=== PATIENT | male | born 1970 | race African-American/Black ===

== ENCOUNTER 2023-06-26 11:57 | Emergency (ER) | payer OTHER, SELFPAY ==
[2023-06-26 12:50] VITALS: BP 174/96; PULSE 60; RESP 18; TEMP 37.1; O2SAT 100
--- NOTE | 2023-06-26 13:09 | ED.WOUNDLAC ---
HPI - Wound/Laceration General Chief Complaint: Wound/Laceration Stated Complaint: open wound rt foot Time Seen by Provider: 06/26/23 13:01 Source: patient and RN notes reviewed Mode of arrival: ambulatory Limitations: no limitations History of Present Illness HPI narrative: Patient presents today complaining of a painful sore on the bottom of his right foot times 3-4 months. States he sweats a lot due to wearing boots for 12 hours a day while at work. States area on his foot is very hard and painful when he walks. He has tried no [id number] treatment prior to arrival. Review of Systems Review of Systems: CONSTITUTIONAL: Denies body aches, fever, chills, or sweats. EYES: Denies visual changes, redness, or discharge. ENT: Denies rhinorrhea, congestion, sore throat, or otalgia. CARDIOVASCULAR: Denies chest pain, palpitations, or edema. RESPIRATORY: Denies cough or dyspnea. GASTROINTESTINAL: Denies abdominal pain, nausea, vomiting, or diarrhea. GENITOURINARY: Denies dysuria or hematuria. SKIN: + foot sore MUSCULOSKELETAL: Denies back pain, joint pain, or myalgia. NEUROLOGIC: Denies headache, numbness, tingling, or weakness. PSYCH: Denies depression or anxiety. PMFSH Comments At time of signature, I have reviewed and agree with nursing past medical, surgical, social and family history unless otherwise noted. Please see nursing chart for further information. There is no relevant family history pertinent to the presenting complaint Exam Narrative: GENERAL: Well-appearing, well-nourished, and in no acute distress. HEAD: Normocephalic, atraumatic. EYES: EOMI. No redness or drainage. Conjunctivae normal. ENT: Mucous membranes pink and moist. NECK: Normal AROM. CHEST: No respiratory distress. EXTREMITIES: Normal range of motion. No edema. SKIN: Warm, dry, no rash. Capillary refill normal. Normal skin turgor.1.5cm round, hard, keratotic lesion with dimpled center to the ball of the foot. No surrounding erythema. No fluctuance. Tender to palpation. Well delineated edges. NEURO: No focal deficits. Alert and oriented x3. Gait steady. PSYCH: Normal affect. No signs of depression or anxiety. Course Course Level of Care: Express Care Visit Vital Signs Vital signs: Vital Signs Temperature 98.8 F 06/26/23 12:50 Pulse Rate 60 06/26/23 12:50 Respiratory Rate 18 06/26/23 12:50 Blood Pressure 174/96 H 06/26/23 12:50 Pulse Oximetry 100 06/26/23 12:50 Oxygen Delivery Room Air 06/26/23 12:50 Temperature 98.8 F 06/26/23 12:50 Pulse Rate 60 06/26/23 12:50 Respiratory Rate 18 06/26/23 12:50 Blood Pressure 174/96 H 06/26/23 12:50 Pulse Oximetry 100 06/26/23 12:50 Oxygen Delivery Room Air 06/26/23 12:50 Reviewed. Pt has been instructed to follow up with his PCP regarding his elevated blood pressure today. MDM - Wound/Laceration MDM Narrative Medical decision making narrative: Exam consistent with porokeratoma. Will refer to podiatry for further treatment. Patient agreeable to plan. Anticipatory guidance given. Differential Diagnosis Differential diagnosis: Likely abscess and other (Keratosis, corn) Critical Care Time Critical Care Time Critical Care Time: No Discharge Plan Discharge Clinical Impression: Acquired plantar porokeratosis Patient Disposition: Home, Self-Care Condition: Stable Additional Instructions: Please follow-up with podiatry for further evaluation of the sore on the bottom of your foot. Take Tylenol or ibuprofen for pain, if able. Your blood pressure was elevated above 120/80 today at Urgent Care. This puts you above the threshold for follow up. Please schedule a followup visit with your personal physician as soon as possible, for further evaluation and treatment. Even blood pressure exceeding 120/80 may indicate pre-hypertension. Follow-up/Referrals: Marge,Anisha Bowen, [employer]-[facility] [Primary Care Provider] - Time of Disposition
== END 2023-06-26 13:16 | disposition home or self-care (01) ==
PROVIDERS: Emergency Provider Nurse Practitioner; PCP Nurse Practitioner Family
DX: L85.1 Acquired keratosis [keratoderma] palmaris et plantaris (principal); I10 Essential (primary) hypertension
CPT/HCPCS: 99202; G0463

== ENCOUNTER 2024-08-11 11:16 | Emergency (ER) | payer OTHER, SELFPAY ==
--- NOTE | 2024-08-11 11:20 | ED.SKABFB ---
HPI - Skin/Abscess/Foreign Bdy General Chief complaint: Skin/Abscess/Foreign Body Stated complaint: painful bump on buttocks Time Seen by Provider: 08/11/24 11:34 Source: patient, RN notes reviewed and old records reviewed Mode of arrival: ambulatory Limitations: no limitations History of Present Illness HPI narrative: 53-year-old male presents to the [facility] with a painful lump to the rectal area that he noticed about 3 days ago. Extremely painful, red, raised. Has noticed discharge. Denies fevers. Denies abdominal pain. No change in bowel movements. Denies any history of hemorrhoids. Reports being a ?borderline diabetic? as well as history of hypertension Onset (ago): day(s) (3) Treatments prior to arrival: none Related Data Home Medications Medication Instructions Recorded Confirmed lisinopril 20 mg tablet 20 mg PO DAILY 08/11/24 08/11/24 Allergies Allergy/AdvReac Type Severity Reaction Status Date / Time amoxicillin Allergy Severe Anaphylaxis Verified 08/11/24 11:43 Review of Systems Review of Systems: All systems reviewed & are unremarkable except as noted in HPI and below Constitutional: Constitutional: Reports no additional constitutional complaints Eyes: Eyes: Reports no additional eye complaints ENT: Reports system reviewed and no additional complaints, except as documented Cardiovascular: Cardiovascular: Reports no additional cardiovascular complaints, Denies chest pain and Denies dyspnea Respiratory: Respiratory: Reports no additional respiratory complaints, Denies chest congestion, Denies cough and Denies dyspnea Gastrointestinal: Gastrointestinal: Reports as per HPI, Denies abdominal pain, Denies change in stool character, Denies constipation, Denies fecal incontinence, Denies nausea, Denies vomiting and Reports other (pain with Bowel movement ) Musculoskeletal: Musculoskeletal: Reports no additional musculoskeletal complaints PMFSH Past Medical History Medical History Borderline diabetes History of high blood pressure Comments At the time of my signature, I reviewed and agree with the nursing past medical, surgical, social, and family history. There is no relevant family history pertinent to the patient complaint. Exam Const: General: cooperative, healthy appearing, comfortable, no acute distress, well developed, alert and well nourished Nutritional Appearance: well nourished Orientation/consciousness: patient oriented x3 Limitations: no limitations HENMT: Head: normal to inspection Ears: hearing grossly normal bilaterally and external ears normal Face/Nose/Sinus: Normal external nose present, normal facial exam and face symmetric Face and sinus: normal facial exam and face symmetric Eyes: General: appearance normal, both eyes and all related structures Alignment and Position: alignment normal Periorbital: periorbital findings normal Neck: Neck: normal visual inspection, full ROM, no lymphadenopathy and no meningeal signs Chest: Chest palpation & inspection: normal inspection of the chest Resp: Effort & Inspection: normal respiratory effort and able to speak in complete sentences Cardio: Rate: regular rate GI: GI Palp: No abdominal tenderness Rectal Exam: abscess (Between 4 and 6 oclock off rectum. 2 x 1.5 cm fluctuant area) and No Rectal prolapse Skin: General skin exam: normal color and no rashes or lesions noted Rashes: no rashes Trauma: no lacerations or abrasions Neuro: General: patient oriented x3, gait normal, tone normal, moves all extremities and no meningeal signs Cognition (Neuro): normal cognition Speech: normal speech Gait exam (Neuro): Normal gait present Extrem: General: normal to inspection, full ROM, capillary refill normal and normal gait Psych: Appearance: grossly normal and well kempt Mental Status: mental status grossly normal Speech and movement: Normal speech and movement present and Clear spee
[2024-08-11 11:28] VITALS: BP 143/84; PULSE 69; RESP 16; TEMP 36.8; O2SAT 99
== END 2024-08-11 11:50 | disposition short-term general hospital (02) ==
PROVIDERS: Emergency Provider Nurse Practitioner; PCP Family Medicine
DX: K61.1 Rectal abscess (principal)
CPT/HCPCS: 99212; G0463

== ENCOUNTER 2025-07-07 17:12 | Emergency (ER) | payer OTHER, SELFPAY ==
--- NOTE | 2025-07-07 17:14 | ED_ITS ---
HPI - Extremity Injury (Upper) General Chief Complaint: Extremity Injury, Upper Stated Complaint: L Wrist Pain Time Seen by Provider: 07/07/25 17:13 Source: patient Mode of arrival: ambulatory Limitations: no limitations History of Present Illness HPI narrative: Giulia is a 54-year-old male patient presenting to the clinic today with complaints of left wrist pain and swelling x1 day. 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 States he yesterday started having pain and swelling to the left medial volar wrist. Is having pain with extension of his fingers as well as inability to make a fist. Denies any injury to his wrist. Has point tenderness over the volar wrist flexor tendon. Related Data Home Medications ?Medication ?Instructions ?Recorded ?Confirmed ?Last Taken ?Type lisinopril 20 mg tablet 20 mg PO DAILY 08/11/2407/25 Unknown History metformin 500 mg tablet,extended mg PO 07/07/25 Unkno wn History release 24 hr Allergies Allergy/AdvReac Type Severity Reaction Status Date / Time amoxicillin Allergy Severe Anaphylaxis Verified 07/07/25 17:26 Review of Systems Review of Systems: Pertinent positives per HPI. Patient denies any fever, chills, rash, headache, visual changes, dizziness, cough, runny nose, sore throat, shortness of breath, chest pain, palpitations, nausea, vomiting, diarrhea, constipation, abdominal pain, or any urinary issues. [facility], [facility] Past Medical History Medical History Borderline diabetes History of high blood pressure Comments At the time of my signature, I reviewed and agree with the nursing past medical, surgical, social, and family history. There is no relevant family history pertinent to the patient complaint. Exam Narrative: General: Well-developed, well nourished, in no apparent distress Head: Normocephalic, atraumatic. Cardio: Regular rate and rhythm, s1 and s2 normal, no murmur appreciated. Resp: Clear to auscultation bilaterally, no rhonchi, rales, wheezing or rubs. Musculoskeletal: No deformity, mild volar wrist swelling with tender to palpation over the flexor tendon, pain with Tinel's, unable to fully extend or f billy fingers and or make a fist, muscle strength strong and equal, peripheral pulse strong, no edema, no cyanosis, normal gait and station Course Course Emergency Course: Portions of this record may have been created with voice recognition software. Level of Care: Express Care Visit Vital Signs Vital signs: Vital signs reviewed MDM - Extremity Injury (Upper) MDM Narrative Medical decision making narrative: At the time of visit patient is resting comfortably on the exam table. Patient appears to be nontoxic. Complaints of left wrist pain and swelling x1 day. 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 States he yesterday started having pain and swelling to the left medial volar wrist. Is having pain with extension of his fingers as well as inability to make a fist. Denies any injury to his wrist. Has point tenderness over the volar wrist flexor tendon. On exam has mild volar wrist swelling with tender to palpation over the flexor tendon, pain with Tinel's, unable to fully extend or flex fingers and or make a fist, Plan: I suspect patient has wrist tendinitis. Prescription for Medrol Dosepak was sent to the pharmacy. Patient also to take Tylenol ibuprofen as needed for pain. Ice pack was given-encouraged to apply for 20 minutes at a time 20 minutes off/20 minutes on for the next 24 hours. Recommend wearing a cock-up wrist splint. Work note was given for no use of the left hand x1 week. Recommend follow-up with PCP this week or if unable to get to PCP may try getting in to orthopedic provider. Dr. Uriarte contact information given to the patient. Supportive measures were discussed with the patient and they voiced understanding discharge instructions and agrees to treatment plan. Return precautions reviewed Differential Diagnosis Differential diagnosis: Likely sprain and strain of wrist, fracture of wrist and other (Arthritis, gout) Discharge Plan Discharge Clinical Impression: Left wrist tendinitis Patient Disposition: Home Condition: Stable Instructions: Antibiotic Form, Tendinitis (ED) Additional Instructions: Rest, ice, elevate, and wear cock-up wrist splint as discussed Tylenol/motrin for pain as discussed. Take Medrol Dosepak as prescribed No use of the left hand x1 week Follow up with your PCP if symptoms persist more than 1 week. Patient Language: Kazakh Prescriptions: New methylprednisolone [Medrol (Juan Diego)] 4 mg tablets,dose pack See Rx Instructions PO .COMPLEX Qty: 21 0RF Rx Instructions: orally per package directions No Action lisinopril 20 mg tablet 20 mg PO DAILY metformin 500 mg tablet extended release 24 hr PO Follow-up/Referrals: Lloyd,MD Hans [Primary Care Provider, Unknown] Jose Uriarte MD [Physician, Orthopedics] - 1 Week Referral Note: Left wrist tendinitis-no injury- pain with flexion and extension of the fingers-unable to make a fist Clinical Impression: Left wrist tendinitis Stand Alone Forms: Work/School Release IP Time of Disposition: 17:46 Quality NIHSS Nursing Documentation ED NIHSS nursing documentation: reviewed/agree
--- OUTSIDE RECORDS SUMMARY | 2025-07-07 17:18 | XMS_ITS | Encounter Summary ---
Author Organization [employer] Address [address] [place] [address] Care Team Providers Care Vault Teller Name Role Phone Unavailable Primary Care Provider Unavailabl e Encounter Details Date Type Department Care Team (Late st Contact Info) Description 10/15/2023 Telephone [facility] [address] [address] [place] [id number] [facility] [address] [place] [address] Social History Tobacco Use Types Packs/Day Years Used Date Smoking Tobacco: Every Day Cigarettes 1.5 3 Sex and Gender Information Value Date Recorded Sex Assigned at Not on file Legal Sex Male 10:06 AM CDT Gender Identity Not on file Sexual Orientation Not on file documented as of this encounter Plan of Treatment Not on file documented as of this encounter Visit Diagnoses Not on filedocumented in this encounter
--- OUTSIDE RECORDS SUMMARY | 2025-07-07 17:18 | XMS_ITS | Encounter Summary ---
Author Organization [facility] Address [address] [place] [address] Care Team Providers Care Fourth Mate Name Role Phone Unavailable Primary Care Provider Unavailabl e Reason for Visit * Reason Onset Date Comments PT SCRIPT 09/03/2023 WOULD LIKE A SCR IPT FOR ADDITIONAL PT/ PATIENT NEXT VISIT IS 09-06-23 Encounter Details Date Type Department Care Team (Late st Contact Info) Description 09/03/2023 Telephone [facility] Orthopedic Surgery at the [facility] [address] [facility] [address] [place] [address] [place] [address] [place] [address] PT SCRIPT (WOULD LIKE A SCRIPT FOR ADDITIONAL PT/ PATIENT NEXT VISIT IS 09-06-23) Social History Tobacco Use Types Packs/Day Years Used Date Smoking Tobacco: Every Day Cigarettes 1.5 3 Sex and Gender Information Value Date Recorded Sex Assigned at Not on file Legal Sex Male 10:06 AM CDT Gender Identity Not on file Sexual Orientation Not on file documented as of this encounter Miscellaneous Notes * Telephone Encounter - Jessy Martin - 09/03/2023 1:30 PM CST WOULD LIKE A SCRIPT FOR ADDITIONAL PT/ PATIENT NEXT VISIT IS 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
--- OUTSIDE RECORDS SUMMARY | 2025-07-07 17:18 | XMS_ITS | Clinical Summary ---
Author Organization [facility] Address [facility] [place] [address] Care Team Providers Care Production Machinist Name Role Phone None, Provider MD Primary Care Provider Unavaila ble Allergies Active Allergy Reactions Criticality Noted Date Comments Amoxicillin Anaphylaxis High 08/28/2022 Social History Tobacco Use Types Packs/Day Years Used Date Smoking Tobacco: Never Smokeless Tobacco: Never Tobacco Cessation:Counseling Given: Not Answered Alcohol Use Standard Drinks/Week Comments Yes 0 (1 standard drink = 0.6 oz pur e alcohol) socially Sex and Gender Information Value Date Recorded Sex Assigned at Not on file Legal Sex 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 Gender Identity Not on file Sexual Orientation Not on file Last Filed Vital Signs Vital Sign Reading Time Taken Comments Blood Pressure 158/72 08/11/2024 2:55 PM CDT Pulse 64 08/11/2024 2:55 PM CDT Temperature 36.6 C (97.9 F) 08/11/2024 12:27 PM CDT Respiratory Rate 20 08/11/2024 2:55 PM CDT Oxygen Saturation 98% 08/11/2024 2:55 PM CDT Inhaled Oxygen Concentration - - Weight 97.5 kg (215 lb) 08/11/2024 12:27 PM CDT Height 177.8 cm (5' 10) 08/11/2024 12:27 PM CDT Body Mass Index 30.85 08/11/2024 12:27 PM CDT Plan of Treatment Health Maintenance Due Date Last Done Comments Colorectal Cancer Screening Colonoscopy (10 Years) 1972 Annual Physical 1975 Hepatitis C 1990 Hepatitis B Vaccines (1 of 3 - 19+ 3-dose series) 1991 Pneumococcal Vaccine: 50+ Years (1 of 1 - PCV) 2022 Zoster Vaccines (1 of 2) 2022 COVID-19 Vaccine (1 - 2023-2 5 season) 2025 DTaP, Tdap and Td Vaccines ( 3 - Td or Tdap) 02/14/2032 02/13/2022, 11/01/2015 Meningococcal B Vaccine Aged Out No l onger eligible based on patient's age to complete this topic Meningococcal Vaccine Aged Out No carol nathan eligible based on patient's age to complete this topic RSV Immunizations Under 20 Months Aged Out No longer eligible b ased on patient's age to complete this topic Additional Health Concerns Infection Onset Date Last Indicated ESBL - Extended Spectrum Bet a-lactamase Comment:08/11/24 +ESBL Perirectal 08/11/2024 08/11/2024 Insurance [facility] Care Teams Production Machinist Relationship Specialty Start Date End Date None, Provider, PCP - General UNKNOWN PHYSICIAN SPECIALTY 08/11/24
--- OUTSIDE RECORDS SUMMARY | 2025-07-07 17:18 | XMS_ITS | Clinical Summary ---
Author Organization [facility] Address [address] [place] [address] Care Team Providers Care Reducing Salon Attendant Name Role Phone Unavailable Primary Care Provider Unavailabl e Source Comments [facility],non-owned Affiliates and Associated Physician Practices is amultiple site organization consisting of ambulatory clinics and hospital sitesin [place], [place], [place] and [place]. This disclosure is being madepursuant to the Care Everywhere program and may not contain all information available regarding this patient. Last updated 18.[facility] [employer] Allergies Active Allergy Reactions Criticality Noted Date Comments Amoxicillin Unknown 03/14/2012 Medications * Be aware that medications may not be up to date on this document. Alwaysverify current medications with the patient. ofloxacin (OCUFLOX) 0.3 % ophthalmic solutionIndicat ions:Ear canal abrasion, right, initial encounter 3 drops in right ear, three times a day, for 3 days 5 mL 10/20/2017 Active lisinopril-hydr oCHLOROthiazide (PRINZIDE; ZESTORETIC) 20-25 MG tablet Take 1 tablet by mouth once daily Please contact office to schedule appt 30 tablet 01/11/2018 Active Active Problems Problem Noted Date Diagnosed Date Essential hypertension, benign 01/01/2013 Overview (01/01/2013): 03/14/12 Immunizations Immunization Administration Dates Next Due TDAP (7yrs+) 11/01/2015 Social History Tobacco Use Types Packs/Day Years Used Date Smoking Tobacco: Never Smokeless Tobacco: Never Alcohol Use Standard Drinks/Week Comments No 0 (1 standard drink = 0.6 oz pur e alcohol) Sex and Gender Information Value Date Recorded Sex Assigned at Not on file Legal Sex Male 8:43 PM SENIOR COMMISSIONS ANALYST Gender Identity Not on file Sexual Orientation Not on file Last Filed Vital Signs Vital Sign Reading Time Taken Comments Blood Pressure 132/80 10/14/2017 2:04 PM SENIOR COMMISSIONS ANALYST Pulse 84 10/14/2017 2:04 PM SENIOR COMMISSIONS ANALYST Temperature 36.6 C (97.8 F) 10/14/2017 2:04 PM SENIOR COMMISSIONS ANALYST Respiratory Rate 14 11/21/2013 3:17 PM SENIOR COMMISSIONS ANALYST Oxygen Saturation 97% 10/14/2017 2:04 PM SENIOR COMMISSIONS ANALYST Inhaled Oxygen Concentration - - Weight 94.3 kg (208 lb) 10/14/2017 2:04 PM SENIOR COMMISSIONS ANALYST Height 182.9 cm (6') 10/14/2017 2:04 PM SENIOR COMMISSIONS ANALYST Body Mass Index 28.21 10/14/2017 2:04 PM SENIOR COMMISSIONS ANALYST Plan of Treatment Health Maintenance Due Date Last Done Comments COLOGUARD (AGES 45-75) - COL ON CA SCREENING 1972 COLON MONITORING 1972 COLONOSCOPY - COLON CA SCREENING 1972 CT COLONOGRAPHY - COLON CA SCREENING 1972 Colorectal Cancer Screening 1972 FIT - COLON CA SCREENING 1972 FLEX SIG - COLON CA SCREENING 1972 HIV SCREENING 1987 HEPATITIS C SCREENING 11/29/1990 HEPATITIS B VACCINE (1 of 3 - 19+ 3-dose series) 1991 SCREENING FOR DIABETES 11/01/2018 11/01/2015 LIPID TESTING 11/01/2020 11/01/2015, 11/01/2015 PNEUMOCOCCAL VACCINE 50+ (1 of 1 - PCV) 2022 ZOSTER VACCINE (1 of 2) 2022 DEPRESSION SCREENING 10/25/2024 COVID-19 VACCINE (1 - 2023-2 5 season) 2025 INFLUENZA VACCINE (#1) 2025 DTAP/TDAP/TD VACCINES (2 - T d or Tdap) 11/01/2025 11/01/2015 HIB VACCINE Aged Out No longer eligi ble based on patient's age to complete this topic HPV VACCINE Aged Out No longer eligi ble based on patient's age to complete this topic MENINGOCOCCAL (Group B) VACCINE SHARED DECISION-MAKING Aged Out No longer eligible based on patient's age to complete this topic MENINGOCOCCAL GROUPS A/C/Y/W VACCINE Aged Out No longer eligible b ased on patient's age to complete this topic Procedures Procedure Name Priority Date/Time Associated Diagnosis Comments COMPREHENSIVE METABOLIC PANEL Routine 11/01/2015 3:41 PM SENIOR COMMISSIONS ANALYST Essential hypertension, benign Encounter for general adult medical examination with abnormal findings LIPID PROFILE Routine 11/01/2015 3:41 PM SENIOR COMMISSIONS ANALYST Essential hypertension, benign Encounter for general adult medical examination with abnormal findings from Last 3 Months or Most Recently Relevant to Health Maintenance Results * (ABNORMAL) COMPREHENSIVE METABOLIC PANEL (11/01/2015 3:41 PM SENIOR COMMISSIONS ANALYST) Glucose 114(H) 65 - 99 mg/dL [facility] ACCOUNT BILL Comment: Specimen received in contact with cells. No visible hemolysis present. However GLUC may be decreased and K increased. Clinical correlation indicated. BUN 29(H) 6 - 24 mg/dL [facility] ACCOUNT BILL Creatinine 1.47(H) 0.76 - 1.27 mg/dL [facility] ACCOUNT BILL eGFR by MDRD 58(L) >59 mL/min/1.7 3 [facility] ACCOUNT BILL eGFR by MDRD 67 >59 mL/min/1.7 3 [facility] ACCOUNT BILL BUN/Creatinine Ratio 20 9 - 20 [facility] ACCOUNT BILL Sodium 136 134 - 144 mmol/L [facility] ACCOUNT BILL Potassium 4.7 3.5 - 5.2 mmol/L [facility] ACCOUNT BILL Chloride 98 97 - 108 mmol/L [facility] ACCOUNT BILL CO2 22 18 - 29 mmol/L [facility] ACCOUNT BILL Calcium 9.5 8.7 - 10.2 mg/dL [facility] ACCOUNT BILL Protein Total 7.5 6.0 - 8.5 g/dL [facility] ACCOUNT BILL Albumin 4.5 3.5 - 5.5 g/dL [facility] ACCOUNT BILL Globulin Total 3.0 1.5 - 4.5 g/dL [facility] ACCOUNT BILL Albumin/Globulin Ratio 1.5 1.1 - 2.5 [facility] ACCOUNT BILL Bilirubin Total <0.2 0.0 - 1.2 mg/dL [facility] ACCOUNT BILL Alkaline Phosphatase 52 39 - 117 IU/L [facility] ACCOUNT BILL AST 20 0 - 40 IU/L [facility] ACCOUNT BILL ALT 35 0 - 44 IU/L [facility] ACCOUNT BILL Blood specimen (specimen) BLOOD SPECIMEN / Unknown 11/01/2015 3:41 PM SENIOR COMMISSIONS ANALYST 11/01/2015 10:17 PM SENIOR COMMISSIONS ANALYST Narrative Resulting Agency Comment [facility] [id number] [id number] Heather A Augustine PA-C LAB - CHEMISTRY ORDERABLES Final Result Performing Organization Address [facility] de Phone Number [facility] ACCOUNT BILL [address] [place] [address] * (ABNORMAL) LIPID PROFILE (11/01/2015 3:41 PM SENIOR COMMISSIONS ANALYST) Cholesterol 222(H) 100 - 199 mg/dL [facility] ACCOUNT BILL Triglycerides 191(H) 0 - 149 mg/dL [facility] ACCOUNT BILL HDL Cholesterol 83 >39 mg/dL [facility] ACCOUNT BILL Comment: According to ATP-III Guidelines, HDL-C >59 mg/dL is considered a negative risk factor for CHD. VLDL Calculated 38 5 - 40 mg/dL [facility] ACCOUNT BILL LDL Calculated 101(H) 0 - 99 mg/dL [facility] ACCOUNT BILL Comment NOT NEEDED [facility] ACCOUNT BILL Comment:Ancillary determined the test is not needed Blood specimen (specimen) BLOOD SPECIMEN / Unknown 11/01/2015 3:41 PM SENIOR COMMISSIONS ANALYST 11/01/2015 10:17 PM SENIOR COMMISSIONS ANALYST Narrative Resulting Agency Comment [facility] [id number] [id number] Heather Nugentt PA-C LAB - CHEMISTRY ORDERABLES Final Result Performing Organization Address City/[facility] de Phone Number [facility] ACCOUNT BILL [address] [place] [address] from Last 3 Months or Most Recently Relevant to Health Maintenance Insurance COMM[employer]CIAL GENERIC
[2025-07-07 17:27] VITALS: BP 178/95; PULSE 60; RESP 18; TEMP 36.4; O2SAT 100
== END 2025-07-07 17:52 | disposition home or self-care (01) ==
PROVIDERS: Emergency Provider Nurse Practitioner Family; PCP Family Medicine
DX: M67.834 Other specified disorders of tendon, left wrist (principal); R73.03 Prediabetes; I10 Essential (primary) hypertension
CPT/HCPCS: 99213; G0463